=== PATIENT | female | born 1980 | race African-American/Black ===

== ENCOUNTER 2019-05-18 17:29 | Emergency (ER) | payer OTHER ==
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
[2019-05-18 17:52] VITALS: BP 138/78; PULSE 67; TEMP 97.5; BMI 36.9
[2019-05-18] MEDS ORDERED: IBUPROFEN 600 MG TABLET (FP) PO ONE ×2 (17:52→18:08)
[2019-05-18] MEDS: CYCLOBENZAPRINE HCL 10 MG TABLET (FP) PO ONE ×2 (18:11→18:27)
[2019-05-18] MEDS ORDERED: CYCLOBENZAPRINE HCL 10 MG TABLET (FP) ONE (18:25)
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
== END 2019-05-18 19:40 | disposition home or self-care (01) ==
LOC: JERFT 17:29
DX: Z04.1 Encounter for examination and observation following transport accident (principal); R51 Headache; M54.2 Cervicalgia; V43.52XA Car driver injured in collision with other type car in traffic accident, initial encounter; Y93.89 Activity, other specified; Y92.410 Unspecified street and highway as the place of occurrence of the external cause
CPT/HCPCS: 72040-TC; 73630-TC-RT-FY; 99281-25